=== PATIENT | male | born 1975 | race Two or more races ===

== ENCOUNTER 2018-03-30 11:08 | Inpatient (IN) | payer MEDICAID ==
[~2018-03-30] VITALS: Ht 175.3 cm; Wt 112.0 kg
[2018-03-30] VITALS (15 sets, daily range): BP systolic 167–202; BP diastolic 91–142
[2018-03-30] MEDS ORDERED: cloNIDine HCL 0.1 MG TAB ONE (11:25)
[2018-03-30] MEDS ORDERED: cloNIDine HCL 0.1 MG TAB PO ONE (11:30)
[2018-03-30 11:51] LABS: Basophils # (auto) 0 uL; Eosinophils # (auto) 0.1 uL; Monocytes # (auto) 0.6 uL
[2018-03-30 11:53] LABS: Basophils % (auto) 0.2 % (0.0-2.0); Eosinophils % (auto) 1.3 % (0.0-7.0); Hematocrit 19.6 % (41.0-53.0); Lymphocytes # (auto) 0.6 uL; Lymphocytes % (auto) 6.1 % (10.0-50.0); Mean Corpuscular Hemoglobin 30.4 pg (28.0-32.0); Mean Corpuscular Hgb Conc. 35.8 g/dL (32.0-36.0); Monocytes % (auto) 6.2 % (0.0-12.0); Neutrophils # (auto) 8.6 uL; Neutrophils % (auto) 86.2 % (37.0-80.0); Platelet Count (auto) 190 10^3/uL (140-450); Red Cell Distribution Width 15.7 % (11.8-14.3)
[2018-03-30 12:10] LABS: Partial Thromboplastin Time 30.8 sec (23.78-33.04); Prothrombin Time 10.7 sec (9.27-12.13)
[2018-03-30 12:36] LABS: Albumin 3.6 g/dL (3.4-5.0); Bilirubin, Total 0.4 mg/dL (0.2-1.0); Calcium 6.5 mg/dL (8.5-10.1); Magnesium 2.4 mg/dL (1.6-2.6); Total Protein 7.2 g/dL (6.4-8.2)
[2018-03-30 12:39] LABS: Potassium 2.8 mmol/L (3.5-5.1)
[2018-03-30] MEDS ORDERED: cefTRIAXone 1GM/10ml IVPUSH 10 ML IV ONE ×2 (13:30→15:00)
[2018-03-30] MEDS ORDERED: ONDANSETRON HCL 4 MG/2 ML VIAL IV ONE (13:30)
[2018-03-30] MEDS ORDERED: hydrALAZINE HCL 20 MG/ML VL IV ONE (13:30)
[2018-03-30] MEDS ORDERED: NITROGLYCERIN 50MG/250ML 250 ML IV SCH (14:55)
[2018-03-30] MEDS ORDERED: DEXTROSE (50%) 50ML SYRG IV PRN (15:00)
[2018-03-30] MEDS ORDERED: NITROGLYCERIN 0.4 MG SL TAB SL PRN (15:00)
[2018-03-30] MEDS ORDERED: ACETAMINOPHEN 500 MG TAB PO PRN (15:00)
[2018-03-30] MEDS ORDERED: MORPHINE SULF INJ 2 MG/ML SYRINGE 1ML IV PRN (15:00)
[2018-03-30] MEDS ORDERED: LACTULOSE 20Gm/30ML SOLN PO PRN (15:00)
[2018-03-30] MEDS: AZITHROMYCIN 500MG/ 250ML 250 ML IV SCH (15:19)
[2018-03-30] MEDS ORDERED: POTASSIUM EFFERVESENT TAB 25 MEQ PO ONE (15:30)
[2018-03-30] MEDS ORDERED: FUROSEMIDE 20 MG TAB PO ONE (15:45)
[2018-03-30 16:03] LABS: Urine Amorphous Crystal FEW /hpf (None Seen); Urine Bacteria FEW /hpf (None Seen); Urine Blood 2+ /uL (Negative); Urine Specific Gravity 1.007 (1.001-1.035); Urine WBC 2 /hpf (0 - 3)
[2018-03-30] MEDS ORDERED: SODIUM CHL 0.9% 1000 ML BAG XX ONE (16:15)
[2018-03-30] MEDS ORDERED: EPOETIN ALFA 10,000 UNIT/1 ML VIAL IV ONE (16:15)
[2018-03-30 16:20] LABS: Alcohol, Urine < 3.0 mg/dL (0-5); Amphetamine Screen, Urine NEGATIVE (NEGATIVE); Barbiturate Scree,Urine NEGATIVE (NEGATIVE); Benzodiazephine Screen, Urine NEGATIVE (NEGATIVE); Cannabinoid Screen, Urine NEGATIVE (NEGATIVE); Cocaine Screen, Urine NEGATIVE (NEGATIVE); Opiate Scree,Urine NEGATIVE (NEGATIVE); Phencyclidine Screen, Urine NEGATIVE (NEGATIVE)
[2018-03-30 16:32] LABS: Protein, Urine 144.6 mg/dL (0.0-11.9)
[2018-03-30 16:38] LABS: CRP High Sensitivity 1.63 mg/dL (< 0.3)
[2018-03-30] MEDS ORDERED: HEPARIN SODIUM (PORCINE) 5000 UNITS/ML 1ML VIAL ONE (16:41)
[2018-03-30] MEDS ORDERED: LIDOCAINE 2% (LOCAL ANESTH.) PF 5ml SDV ONE (16:57)
[2018-03-30] MEDS: InsuLIN REG 1unit/0.01ml Soln (100units/ml) SC SCH (18:00)
[2018-03-30 18:19] LABS: Hematocrit 20.6 % (41.0-53.0); Hemoglobin 7.4 g/dL (13.5-17.5)
[2018-03-30] MEDS: ALBUTEROL SULF 2.5 MG/0.5ML(0.5%) NEB SOLN NEB SCH (18:25)
[2018-03-30] MEDS: ACCU-CHEK COMFORT CURVE STRIP VI SCH (18:40)
[2018-03-30] MEDS: PROMETHAZINE HCL 25 MG/ML 1ML IV PRN (20:35)
[2018-03-30] MEDS: MORPHINE SULF INJ 2 MG/ML SYRINGE 1ML IV PRN (20:35)
[2018-03-30] MEDS: SODIUM CHLOR 0.9% PF (SALINE LOCK) 10ML VIAL/SYR IV SCH (20:35)
[2018-03-30] MEDS: PANTOPRAZOLE 40 MG TAB PO SCH (22:00)
[2018-03-30] MEDS: CARVEDILOL 3.125 MG TAB PO SCH (22:00)
[2018-03-31] VITALS (83 sets, daily range): BP systolic 125–196; BP diastolic 68–129
[2018-03-31] MEDS: ALBUTEROL SULF 2.5 MG/0.5ML(0.5%) NEB SOLN NEB SCH ×4 (00:12→18:38)
[2018-03-31 01:10] LABS: Hematocrit 21.3 % (41.0-53.0); Hemoglobin 7.7 g/dL (13.5-17.5)
[2018-03-31] MEDS: TEMAZEPAM 15 MG CAP PO PRN (02:06)
[2018-03-31] MEDS: HYDROcodone-ACET 5/325MG TAB PO PRN (02:06)
[2018-03-31 03:57] LABS: Basophils # (auto) 0 uL; Eosinophils # (auto) 0 uL; Eosinophils % (auto) 0.2 % (0.0-7.0); Monocytes # (auto) 0.7 uL; Neutrophils # (auto) 8.8 uL; Platelet Count (auto) 175 10^3/uL (140-450)
[2018-03-31 03:59] LABS: Basophils % (auto) 0.1 % (0.0-2.0); Hematocrit 19.7 % (41.0-53.0); Lymphocytes # (auto) 0.3 uL; Lymphocytes % (auto) 2.8 % (10.0-50.0); Mean Corpuscular Hemoglobin 30.1 pg (28.0-32.0); Mean Corpuscular Hgb Conc. 35.6 g/dL (32.0-36.0); Mean Corpuscular Volume 84.6 fL (80.0-100.0); Monocytes % (auto) 7.5 % (0.0-12.0); Neutrophils % (auto) 89.4 % (37.0-80.0); Red Blood Cells 2.33 10^6/uL (4.5-5.90); Red Cell Distribution Width 14.9 % (11.8-14.3); White Blood Cell 9.9 10^3/uL (4.4-10.8)
[2018-03-31 04:28] LABS: BUN/Creatinine Ratio 7.7; Bilirubin, Total 0.5 mg/dL (0.2-1.0); Calcium 6.2 mg/dL (8.5-10.1); Phosphorus 7.2 mg/dL (2.5-4.90); Total Protein 6.2 g/dL (6.4-8.2)
[2018-03-31 04:35] LABS: Potassium 2.9 mmol/L (3.5-5.1)
[2018-03-31] MEDS: MORPHINE SULF INJ 2 MG/ML SYRINGE 1ML IV PRN ×5 (04:48→20:16)
[2018-03-31] MEDS ORDERED: hydrALAZINE HCL 20 MG/ML VL ONE (05:57)
[2018-03-31] MEDS: InsuLIN REG 1unit/0.01ml Soln (100units/ml) SC SCH ×4 (06:00→18:00)
[2018-03-31] MEDS: ACCU-CHEK COMFORT CURVE STRIP VI SCH ×4 (06:00→18:10)
[2018-03-31] MEDS: SODIUM CHLOR 0.9% PF (SALINE LOCK) 10ML VIAL/SYR IV SCH ×3 (06:00→21:44)
[2018-03-31] MEDS ORDERED: POTASSIUM EFFERVESENT TAB 25 MEQ PO ONE (06:15)
[2018-03-31] MEDS ORDERED: hydrALAZINE HCL 20 MG/ML VL IV ONE (06:15)
[2018-03-31] MEDS ORDERED: SODIUM CHL 0.9% 1000 ML BAG XX ONE (07:45)
[2018-03-31] MEDS ORDERED: EPOETIN ALFA 10,000 UNIT/1 ML VIAL IV ONE (07:45)
[2018-03-31] MEDS ORDERED: POTASSIUM CHL 20 Meq TABLET PO ONE ×3 (08:30→21:00)
[2018-03-31] MEDS ORDERED: NIFEdipine ER 30 MG TAB PO ONE ×4 (09:15→10:45)
[2018-03-31] MEDS: cefTRIAXone 1GM/10ml IVPUSH 10 ML IV SCH (09:30)
[2018-03-31] MEDS ORDERED: ASPirin 81 mg TAB PO ONE (10:00)
[2018-03-31] MEDS: ENOXAPARIN SOD 30 MG/0.3 ML SYRINGE SC SCH (10:00)
[2018-03-31] MEDS: FUROSEMIDE 40 MG/4 ML VIAL IV SCH (10:05)
[2018-03-31] MEDS: CARVEDILOL 3.125 MG TAB PO SCH ×2 (10:05→21:44)
[2018-03-31] MEDS: PANTOPRAZOLE 40 MG TAB PO SCH ×2 (10:05→21:43)
[2018-03-31] MEDS: ASPirin 81 mg TAB PO SCH (10:06)
[2018-03-31] MEDS: AZITHROMYCIN 500MG/ 250ML 250 ML IV SCH (10:06)
[2018-03-31] MEDS: NICARDIPINE 25MG/250ML BAG KIT 250 ML IV SCH ×3 (11:20→20:45)
[2018-03-31 12:55] LABS: Hepatitis A Ab IgM Negative; Hepatitis B Core IgM Negative; Hepatitis B Surface Antigen Negative (Negative)
[2018-03-31 12:56] LABS: Hepatitis C Antibody Negative (Negative)
[2018-03-31 16:20] LABS: Basophils # (auto) 0 uL; Basophils % (auto) 0.1 % (0.0-2.0); Eosinophils # (auto) 0.1 uL; Eosinophils % (auto) 0.4 % (0.0-7.0); Hematocrit 26.1 % (41.0-53.0); Hemoglobin 9.4 g/dL (13.5-17.5); Lymphocytes # (auto) 0.6 uL; Mean Corpuscular Hemoglobin 30.5 pg (28.0-32.0); Mean Corpuscular Volume 84.7 fL (80.0-100.0); Monocytes # (auto) 1.4 uL; Monocytes % (auto) 8.6 % (0.0-12.0); Neutrophils # (auto) 13.7 uL; Neutrophils % (auto) 86.9 % (37.0-80.0); Platelet Count (auto) 183 10^3/uL (140-450); Red Blood Cells 3.08 10^6/uL (4.5-5.90); Red Cell Distribution Width 15.3 % (11.8-14.3); White Blood Cell 15.8 10^3/uL (4.4-10.8)
[2018-03-31 16:32] LABS: BUN/Creatinine Ratio 7.1; Calcium 7.1 mg/dL (8.5-10.1); Potassium 3.1 mmol/L (3.5-5.1)
[2018-03-31] MEDS: SEVELAMER 800 MG TAB PO SCH (18:02)
[2018-03-31] MEDS ORDERED: HCTZ25T PO (19:24)
[2018-03-31] MEDS ORDERED: ATEN100T PO (19:24)
[2018-03-31 22:11] LABS: BUN/Creatinine Ratio 5.6; Calcium 6.9 mg/dL (8.5-10.1); Potassium 3.2 mmol/L (3.5-5.1)
[2018-04-01] VITALS (58 sets, daily range): BP systolic 111–156; BP diastolic 70–104
[2018-04-01] MEDS: ACCU-CHEK COMFORT CURVE STRIP VI SCH ×4 (00:17→17:40)
[2018-04-01] MEDS: HYDROcodone-ACET 5/325MG TAB PO PRN ×3 (00:22→16:35)
[2018-04-01] MEDS: ALBUTEROL SULF 2.5 MG/0.5ML(0.5%) NEB SOLN NEB SCH ×4 (00:28→19:02)
[2018-04-01] MEDS: NICARDIPINE 25MG/250ML BAG KIT 250 ML IV SCH ×4 (01:45→14:01)
[2018-04-01 04:40] LABS: BUN/Creatinine Ratio 5.9; Calcium 7.2 mg/dL (8.5-10.1); Potassium 3.8 mmol/L (3.5-5.1)
[2018-04-01] MEDS: PROMETHAZINE HCL 25 MG/ML 1ML IV PRN (05:10)
[2018-04-01] MEDS: InsuLIN REG 1unit/0.01ml Soln (100units/ml) SC SCH ×4 (06:00→17:40)
[2018-04-01] MEDS: SODIUM CHLOR 0.9% PF (SALINE LOCK) 10ML VIAL/SYR IV SCH ×3 (06:19→21:52)
[2018-04-01] MEDS ORDERED: SODIUM CHL 0.9% 1000 ML BAG XX ONE (07:45)
[2018-04-01] MEDS ORDERED: EPOETIN ALFA 10,000 UNIT/1 ML VIAL IV ONE (07:45)
[2018-04-01 07:50] LABS: Basophils # (auto) 0 uL; Eosinophils # (auto) 0.1 uL; Eosinophils % (auto) 0.7 % (0.0-7.0)
[2018-04-01 07:52] LABS: Basophils % (auto) 0.1 % (0.0-2.0); Hematocrit 24.4 % (41.0-53.0); Hemoglobin 8.3 g/dL (13.5-17.5); Lymphocytes # (auto) 0.6 uL; Lymphocytes % (auto) 3.8 % (10.0-50.0); Mean Corpuscular Hemoglobin 29.7 pg (28.0-32.0); Mean Corpuscular Hgb Conc. 34.1 g/dL (32.0-36.0); Mean Corpuscular Volume 87.2 fL (80.0-100.0); Monocytes # (auto) 1.3 uL; Monocytes % (auto) 8.7 % (0.0-12.0); Neutrophils % (auto) 86.7 % (37.0-80.0); Platelet Count (auto) 177 10^3/uL (140-450); Red Cell Distribution Width 15.4 % (11.8-14.3)
[2018-04-01] MEDS: cefTRIAXone 1GM/10ml IVPUSH 10 ML IV SCH (09:33)
[2018-04-01] MEDS: AZITHROMYCIN 500MG/ 250ML 250 ML IV SCH (09:34)
[2018-04-01] MEDS: ENOXAPARIN SOD 30 MG/0.3 ML SYRINGE SC SCH (09:34)
[2018-04-01] MEDS: FUROSEMIDE 40 MG/4 ML VIAL IV SCH (09:34)
[2018-04-01] MEDS: ASPirin 81 mg TAB PO SCH (09:35)
[2018-04-01] MEDS: SEVELAMER 800 MG TAB PO SCH ×3 (09:35→18:18)
[2018-04-01] MEDS: PANTOPRAZOLE 40 MG TAB PO SCH ×2 (09:35→21:57)
[2018-04-01] MEDS: NIFEdipine ER 30 MG TAB PO SCH (09:35)
[2018-04-01] MEDS: CARVEDILOL 3.125 MG TAB PO SCH ×2 (09:36→21:57)
[2018-04-01] MEDS: DOCUSATE SOD 100 MG CAP PO SCH ×2 (15:44→21:57)
[2018-04-02] VITALS (42 sets, daily range): BP systolic 97–188; BP diastolic 51–121
[2018-04-02] MEDS: ALBUTEROL SULF 2.5 MG/0.5ML(0.5%) NEB SOLN NEB SCH ×4 (00:02→18:23)
[2018-04-02 03:54] LABS: Basophils # (auto) 0.1 uL; Basophils % (auto) 0.5 % (0.0-2.0); Eosinophils # (auto) 0.4 uL; Eosinophils % (auto) 2.6 % (0.0-7.0); Hematocrit 26.3 % (41.0-53.0); Hemoglobin 8.8 g/dL (13.5-17.5); Lymphocytes # (auto) 0.9 uL; Lymphocytes % (auto) 6.2 % (10.0-50.0); Mean Corpuscular Hemoglobin 29.6 pg (28.0-32.0); Mean Corpuscular Hgb Conc. 33.6 g/dL (32.0-36.0); Mean Corpuscular Volume 88.1 fL (80.0-100.0); Monocytes # (auto) 1.3 uL; Monocytes % (auto) 9.4 % (0.0-12.0); Neutrophils # (auto) 11.4 uL; Neutrophils % (auto) 81.3 % (37.0-80.0); Platelet Count (auto) 183 10^3/uL (140-450); Red Blood Cells 2.98 10^6/uL (4.5-5.90); Red Cell Distribution Width 15.1 % (11.8-14.3)
[2018-04-02 04:11] LABS: Potassium 3.7 mmol/L (3.5-5.1)
[2018-04-02 04:26] LABS: Albumin 2.8 g/dL (3.4-5.0); Bilirubin, Total 0.4 mg/dL (0.2-1.0); Total Protein 6.3 g/dL (6.4-8.2)
[2018-04-02] MEDS: InsuLIN REG 1unit/0.01ml Soln (100units/ml) SC SCH ×4 (05:28→18:00)
[2018-04-02] MEDS: SODIUM CHLOR 0.9% PF (SALINE LOCK) 10ML VIAL/SYR IV SCH ×3 (05:28→20:56)
[2018-04-02] MEDS: ACCU-CHEK COMFORT CURVE STRIP VI SCH ×4 (05:28→18:10)
[2018-04-02] MEDS: SEVELAMER 800 MG TAB PO SCH ×3 (08:33→18:54)
[2018-04-02] MEDS: NIFEdipine ER 30 MG TAB PO SCH (08:34)
[2018-04-02] MEDS ORDERED: ERGOCALCIFEROL 50,000 UNIT(1.25MG) CAP PO SCH (10:00)
[2018-04-02] MEDS ORDERED: CALCITRIOL 0.25 MCG CAP PO SCH (10:00)
[2018-04-02] MEDS: AZITHROMYCIN 500MG/ 250ML 250 ML IV SCH (10:28)
[2018-04-02] MEDS: cefTRIAXone 1GM/10ml IVPUSH 10 ML IV SCH (10:29)
[2018-04-02] MEDS: DOCUSATE SOD 100 MG CAP PO SCH ×2 (10:30→20:55)
[2018-04-02] MEDS: ASPirin 81 mg TAB PO SCH (10:30)
[2018-04-02] MEDS: FUROSEMIDE 40 MG/4 ML VIAL IV SCH (10:30)
[2018-04-02] MEDS: CARVEDILOL 3.125 MG TAB PO SCH (10:31)
[2018-04-02] MEDS: PANTOPRAZOLE 40 MG TAB PO SCH ×2 (10:31→20:55)
[2018-04-02] MEDS: ENOXAPARIN SOD 30 MG/0.3 ML SYRINGE SC SCH (10:32)
[2018-04-02] MEDS: HYDROcodone-ACET 5/325MG TAB PO PRN ×2 (10:53→20:20)
[2018-04-02] MEDS: CALCITRIOL 0.25 MCG CAP PO SCH (12:50)
[2018-04-02] MEDS: ATENOLOL 50 MG TAB PO SCH ×2 (13:58→20:55)
[2018-04-02] MEDS: PROMETHAZINE HCL 25 MG/ML 1ML IV PRN (20:55)
[2018-04-02] MEDS ORDERED: ATENOLOL 50 MG TAB PO SCH (22:00)
[2018-04-02] MEDS: TEMAZEPAM 15 MG CAP PO PRN (23:04)
[2018-04-03] VITALS (10 sets, daily range): BP systolic 120–162; BP diastolic 79–98
[2018-04-03] MEDS: ACCU-CHEK COMFORT CURVE STRIP VI SCH ×4 (00:03→18:11)
[2018-04-03] MEDS: ALBUTEROL SULF 2.5 MG/0.5ML(0.5%) NEB SOLN NEB SCH ×2 (00:13→06:58)
[2018-04-03] MEDS: PROMETHAZINE HCL 25 MG/ML 1ML IV PRN (03:32)
[2018-04-03] MEDS: HYDROcodone-ACET 5/325MG TAB PO PRN ×3 (03:32→18:32)
[2018-04-03 03:47] LABS: Basophils # (auto) 0.1 uL; Basophils % (auto) 0.5 % (0.0-2.0); Eosinophils # (auto) 0.5 uL; Eosinophils % (auto) 3.6 % (0.0-7.0); Hematocrit 27.4 % (41.0-53.0); Hemoglobin 9.1 g/dL (13.5-17.5); Lymphocytes # (auto) 1.3 uL; Mean Corpuscular Hemoglobin 29.3 pg (28.0-32.0); Mean Corpuscular Hgb Conc. 33.4 g/dL (32.0-36.0); Mean Corpuscular Volume 87.6 fL (80.0-100.0); Monocytes # (auto) 1.5 uL; Monocytes % (auto) 10.4 % (0.0-12.0); Neutrophils # (auto) 10.8 uL; Neutrophils % (auto) 76.5 % (37.0-80.0); Platelet Count (auto) 235 10^3/uL (140-450); Red Blood Cells 3.12 10^6/uL (4.5-5.90); Red Cell Distribution Width 15.4 % (11.8-14.3); White Blood Cell 14.2 10^3/uL (4.4-10.8)
[2018-04-03 04:11] LABS: Albumin 2.7 g/dL (3.4-5.0); Bilirubin, Total 0.4 mg/dL (0.2-1.0); Calcium 8.2 mg/dL (8.5-10.1); Phosphorus 5.8 mg/dL (2.5-4.90); Potassium 3.3 mmol/L (3.5-5.1); Total Protein 6.3 g/dL (6.4-8.2)
[2018-04-03] MEDS: InsuLIN REG 1unit/0.01ml Soln (100units/ml) SC SCH ×4 (06:00→18:00)
[2018-04-03] MEDS: SODIUM CHLOR 0.9% PF (SALINE LOCK) 10ML VIAL/SYR IV SCH ×3 (07:35→22:31)
[2018-04-03] MEDS: cefTRIAXone 1GM/10ml IVPUSH 10 ML IV SCH (09:10)
[2018-04-03] MEDS: SEVELAMER 800 MG TAB PO SCH ×3 (09:11→18:10)
[2018-04-03] MEDS: ATENOLOL 50 MG TAB PO SCH ×2 (10:04→22:34)
[2018-04-03] MEDS: NIFEdipine ER 30 MG TAB PO SCH (10:05)
[2018-04-03] MEDS: PANTOPRAZOLE 40 MG TAB PO SCH ×2 (10:05→22:34)
[2018-04-03] MEDS: ASPirin 81 mg TAB PO SCH (10:05)
[2018-04-03] MEDS: DOCUSATE SOD 100 MG CAP PO SCH ×2 (10:05→22:00)
[2018-04-03] MEDS: FUROSEMIDE 40 MG/4 ML VIAL IV SCH (10:05)
[2018-04-03] MEDS: ENOXAPARIN SOD 30 MG/0.3 ML SYRINGE SC SCH (10:06)
[2018-04-03] MEDS: CALCITRIOL 0.25 MCG CAP PO SCH (10:06)
[2018-04-03] MEDS: AZITHROMYCIN 500MG/ 250ML 250 ML IV SCH (10:08)
[2018-04-03] MEDS: TEMAZEPAM 15 MG CAP PO PRN (22:36)
[2018-04-03] MEDS: LORazepam 0.5 MG TAB PO PRN (23:58)
[2018-04-04] MEDS: ACCU-CHEK COMFORT CURVE STRIP VI SCH ×4 (00:01→18:18)
[2018-04-04 04:49] VITALS: BP 117/83
[2018-04-04] MEDS: InsuLIN REG 1unit/0.01ml Soln (100units/ml) SC SCH ×4 (06:00→18:00)
[2018-04-04] MEDS: MORPHINE SULF INJ 2 MG/ML SYRINGE 1ML IV PRN ×4 (06:00→19:54)
[2018-04-04] MEDS: SODIUM CHLOR 0.9% PF (SALINE LOCK) 10ML VIAL/SYR IV SCH ×3 (06:06→21:24)
[2018-04-04] MEDS: SEVELAMER 800 MG TAB PO SCH ×3 (08:44→18:18)
[2018-04-04] MEDS: PANTOPRAZOLE 40 MG TAB PO SCH ×2 (08:53→21:18)
[2018-04-04] MEDS: ASPirin 81 mg TAB PO SCH (08:53)
[2018-04-04] MEDS: ENOXAPARIN SOD 30 MG/0.3 ML SYRINGE SC SCH (08:53)
[2018-04-04] MEDS: CALCITRIOL 0.25 MCG CAP PO SCH (08:54)
[2018-04-04] MEDS: NIFEdipine ER 30 MG TAB PO SCH (08:54)
[2018-04-04] MEDS: DOCUSATE SOD 100 MG CAP PO SCH ×2 (08:55→21:18)
[2018-04-04] MEDS: LORazepam 0.5 MG TAB PO PRN ×2 (09:00→21:45)
[2018-04-04 09:24] VITALS: BP 125/88
[2018-04-04] MEDS ORDERED: EPOETIN ALFA 10,000 UNIT/1 ML VIAL IV ONE (10:45)
[2018-04-04] MEDS ORDERED: SODIUM CHL 0.9% 1000 ML BAG XX ONE (10:45)
[2018-04-04] MEDS ORDERED: POTASSIUM CHL 20 Meq TABLET PO ONE (11:00)
[2018-04-04 13:00] VITALS: BP 125/91
[2018-04-04] MEDS: ALBUTEROL SULF 2.5 MG/0.5ML(0.5%) NEB SOLN NEB PRN (14:49)
[2018-04-04 17:00] VITALS: BP 134/84
[2018-04-04] MEDS: HYDROcodone-ACET 5/325MG TAB PO PRN (21:15)
[2018-04-04] MEDS: ATENOLOL 50 MG TAB PO SCH ×2 (21:15→21:17)
[2018-04-04 22:00] VITALS: BP 148/103
[2018-04-05] VITALS (8 sets, daily range): BP systolic 124–179; BP diastolic 78–125
[2018-04-05] MEDS: MORPHINE SULF INJ 2 MG/ML SYRINGE 1ML IV PRN ×3 (03:31→22:07)
[2018-04-05] MEDS: InsuLIN REG 1unit/0.01ml Soln (100units/ml) SC SCH ×5 (05:09→23:34)
[2018-04-05] MEDS: ACCU-CHEK COMFORT CURVE STRIP VI SCH ×5 (05:09→23:34)
[2018-04-05] MEDS: SODIUM CHLOR 0.9% PF (SALINE LOCK) 10ML VIAL/SYR IV SCH ×3 (05:10→21:13)
[2018-04-05] MEDS: LORazepam 0.5 MG TAB PO PRN ×3 (05:16→19:41)
[2018-04-05] MEDS: ALBUTEROL SULF 2.5 MG/0.5ML(0.5%) NEB SOLN NEB PRN (07:22)
[2018-04-05] MEDS: SEVELAMER 800 MG TAB PO SCH ×3 (08:00→18:00)
[2018-04-05] MEDS: HYDROcodone-ACET 5/325MG TAB PO PRN ×3 (08:15→19:44)
[2018-04-05] MEDS ORDERED: IODIXANOL 320MG/ML 100ML BTL IV ONE (09:38)
[2018-04-05] MEDS ORDERED: LIDOCAINE 2%HCL (LOCAL ANESTH.) INJ 10ml MDV ONE ×3 (09:38→10:09)
[2018-04-05] MEDS ORDERED: fentaNYL CITRATE 100 MCG/2 ML VL ONE (09:39)
[2018-04-05] MEDS ORDERED: MIDAZOLAM HCL 1MG/1ML-2 ML VIAL ONE (09:39)
[2018-04-05] MEDS: ENOXAPARIN SOD 30 MG/0.3 ML SYRINGE SC SCH (10:00)
[2018-04-05] MEDS: CALCITRIOL 0.25 MCG CAP PO SCH (10:00)
[2018-04-05] MEDS: ASPirin 81 mg TAB PO SCH (10:00)
[2018-04-05] MEDS: PANTOPRAZOLE 40 MG TAB PO SCH ×2 (10:00→21:10)
[2018-04-05] MEDS: DOCUSATE SOD 100 MG CAP PO SCH ×2 (10:00→21:10)
[2018-04-05] MEDS ORDERED: ceFAZolin 1GM/50ML 50 ML IV ONE (10:05)
[2018-04-05] MEDS ORDERED: HEPARIN SODIUM (PORCINE) 5000 UNITS/ML 1ML VIAL ONE (10:07)
[2018-04-05 13:40] LABS: BUN/Creatinine Ratio 4.9; Calcium 7.8 mg/dL (8.5-10.1); Potassium 3.6 mmol/L (3.5-5.1)
[2018-04-05] MEDS ORDERED: NIFEdipine ER 30 MG TAB PO SCH (18:00)
[2018-04-05] MEDS ORDERED: cloNIDine HCL 0.1 MG TAB PO PRN (18:30)
[2018-04-05] MEDS: ATENOLOL 50 MG TAB PO SCH (21:11)
[2018-04-06] MEDS: MORPHINE SULF INJ 2 MG/ML SYRINGE 1ML IV PRN (03:42)
[2018-04-06] MEDS: ACCU-CHEK COMFORT CURVE STRIP VI SCH ×2 (05:08→12:00)
[2018-04-06] MEDS: InsuLIN REG 1unit/0.01ml Soln (100units/ml) SC SCH ×2 (05:08→12:00)
[2018-04-06] MEDS: SODIUM CHLOR 0.9% PF (SALINE LOCK) 10ML VIAL/SYR IV SCH ×2 (05:09→14:00)
[2018-04-06 05:56] VITALS: BP 132/92
[2018-04-06 06:18] LABS: Basophils # (auto) 0.1 uL; Basophils % (auto) 0.5 % (0.0-2.0); Eosinophils # (auto) 0.6 uL; Eosinophils % (auto) 4.6 % (0.0-7.0); Hematocrit 26.9 % (41.0-53.0); Hemoglobin 8.8 g/dL (13.5-17.5); Lymphocytes # (auto) 0.6 uL; Lymphocytes % (auto) 5.2 % (10.0-50.0); Mean Corpuscular Hemoglobin 29.3 pg (28.0-32.0); Mean Corpuscular Hgb Conc. 32.7 g/dL (32.0-36.0); Mean Corpuscular Volume 89.6 fL (80.0-100.0); Monocytes # (auto) 1.4 uL; Monocytes % (auto) 11.5 % (0.0-12.0); Neutrophils # (auto) 9.5 uL; Neutrophils % (auto) 78.2 % (37.0-80.0); Platelet Count (auto) 273 10^3/uL (140-450); Red Cell Distribution Width 15.2 % (11.8-14.3); White Blood Cell 12.1 10^3/uL (4.4-10.8)
[2018-04-06 06:39] LABS: Calcium 7.9 mg/dL (8.5-10.1)
[2018-04-06 09:00] VITALS: BP 153/103
[2018-04-06] MEDS ORDERED: EPOETIN ALFA 10,000 UNIT/1 ML VIAL IV ONE (09:30)
[2018-04-06] MEDS ORDERED: SODIUM CHL 0.9% 1000 ML BAG XX ONE (09:30)
[2018-04-06] MEDS ORDERED: ENOXAPARIN SOD 30 MG/0.3 ML SYRINGE SC SCH (10:00)
[2018-04-06] MEDS: PANTOPRAZOLE 40 MG TAB PO SCH (10:54)
[2018-04-06] MEDS: CALCITRIOL 0.25 MCG CAP PO SCH (10:54)
[2018-04-06] MEDS: ASPirin 81 mg TAB PO SCH (10:55)
[2018-04-06] MEDS: DOCUSATE SOD 100 MG CAP PO SCH (10:55)
[2018-04-06] MEDS: SEVELAMER 800 MG TAB PO SCH ×2 (11:18→11:24)
[2018-04-06 13:00] VITALS: BP 118/94
[2018-04-06] MEDS: HYDROcodone-ACET 5/325MG TAB PO PRN (14:59)
[2018-04-06 17:00] VITALS: BP 149/104
== END 2018-04-06 17:30 | disposition home or self-care (01) | DRG 720 ==
LOC: ER 11:08 → OVERFLOW 15:37 → ICU WEST 22:12 → TELE-WESTW 04-03 11:54
PROVIDERS: ADMIT Internal Medicine; ATTEND Internal Medicine Pulmonary Disease
PROC: 02HV33Z Insertion of Infusion Device into Superior Vena Cava, Percutaneous Approach (ICD-10-PCS; principal; 2018-03-30)
PROC: B5181ZA Fluoroscopy of Superior Vena Cava using Low Osmolar Contrast, Guidance (ICD-10-PCS; 2018-03-30)
PROC: B548ZZA Ultrasonography of Superior Vena Cava, Guidance (ICD-10-PCS; 2018-03-30)
PROC: 5A1D70Z Performance of Urinary Filtration, Intermittent, Less than 6 Hours Per Day (ICD-10-PCS; 2018-03-30)
PROC: 30233N1 Transfusion of Nonautologous Red Blood Cells into Peripheral Vein, Percutaneous Approach (ICD-10-PCS; 2018-03-30)
PROC: 5A1D70Z Performance of Urinary Filtration, Intermittent, Less than 6 Hours Per Day (ICD-10-PCS; 2018-03-31)
PROC: 5A1D70Z Performance of Urinary Filtration, Intermittent, Less than 6 Hours Per Day (ICD-10-PCS; 2018-04-01)
PROC: 5A1D70Z Performance of Urinary Filtration, Intermittent, Less than 6 Hours Per Day (ICD-10-PCS; 2018-04-04)
PROC: 5A1D70Z Performance of Urinary Filtration, Intermittent, Less than 6 Hours Per Day (ICD-10-PCS; 2018-04-06)
DX: A41.9 Sepsis, unspecified organism (principal); J96.00 Acute respiratory failure, unspecified whether with hypoxia or hypercapnia; N17.0 Acute kidney failure with tubular necrosis; I13.2 Hypertensive heart and chronic kidney disease with heart failure and with stage 5 chronic kidney disease, or end stage renal disease; J15.6 Pneumonia due to other Gram-negative bacteria; I50.9 Heart failure, unspecified; N18.6 End stage renal disease; E44.1 Mild protein-calorie malnutrition; E87.1 Hypo-osmolality and hyponatremia; I16.1 Hypertensive emergency; E87.6 Hypokalemia; R73.9 Hyperglycemia, unspecified; D63.1 Anemia in chronic kidney disease; E21.3 Hyperparathyroidism, unspecified; E55.9 Vitamin D deficiency, unspecified; E87.70 Fluid overload, unspecified; F41.9 Anxiety disorder, unspecified; Z74.01 Bed confinement status; Z79.899 Other long term (current) drug therapy; Z82.49 Family history of ischemic heart disease and other diseases of the circulatory system; Z91.19 Patient's noncompliance with other medical treatment and regimen; Z79.82 Long term (current) use of aspirin; Z68.36 Body mass index [BMI] 36.0-36.9, adult
CPT/HCPCS: 36415; 36430; 71045; 71046; 74176; 76000; 76775; 76937; 77002; 80048; 80053; 80061; 80074; 80307; 81001; 82088; 82150; 82270; 82306; 82378; 82550; 82570; 82962; 83036; 83605; 83690; 83735; 83880; 83970; 84100; 84156; 84244; 84443; 84484; 85014; 85018; 85025; 85045; 85610; 85652; 85730; 86038; 86141; 86160; 86850; 86900; 86901; 86920; 87040; 87070; 87077; 87081; 87186; 87205; 90935; 93005; 93306; 94640; 94761; 96374; 96375; 99152; 99291; A6257; J0690; J0696; J0885; J1642; J1815; J2001; J2250; J2405; Q9967

== ENCOUNTER 2022-02-21 16:04 | Emergency (ER) | payer MEDICARE, MEDICAID ==
[~2022-02-21] VITALS: Ht 172.7 cm; Wt 95.3 kg
[~2022-02-21 16:04] MED LIST: ATEN100T PO; CINA30TA2 PO; FURO80TA3 PO; HYDR25TA5 PO; LABE300T3 PO; NIFE1TAB31 PO; [UNRECOGNIZED DRUG - CODE] PO
[2022-02-21 16:36] VITALS: BP 136/84
[2022-02-21] MEDS ORDERED: cefTRIAXone SOD 1,000 MG VL IM ONE (16:45)
[2022-02-21] MEDS ORDERED: METH4PAK PO (16:49)
[2022-02-21] MEDS ORDERED: AZIT500T66 PO (16:49)
[2022-02-21] MEDS ORDERED: ACET-1080 PO (17:05)
== END 2022-02-21 17:11 | disposition home or self-care (01) ==
LOC: ER 16:04
DX: U07.1 COVID-19 (principal); J03.90 Acute tonsillitis, unspecified; I12.0 Hypertensive chronic kidney disease with stage 5 chronic kidney disease or end stage renal disease; N18.6 End stage renal disease; Z79.899 Other long term (current) drug therapy
CPT/HCPCS: 96372; 99283; J0696

== ENCOUNTER 2022-12-02 12:34 | Emergency (ER) | payer MEDICARE, MEDICAID ==
[~2022-12-02] VITALS: Ht 175.3 cm; Wt 95.4 kg
[~2022-12-02 12:34] MED LIST changes: +ACET-1080 PO; +AZIT500T66 PO
[2022-12-02 13:22] LABS: Basophils # (auto) 0.1 10 ^3/uL (0-0.2); Eosinophils # (auto) 0.2 10 ^3/uL (0-0.8); Lymphocytes # (auto) 1.4 10 ^3/uL (0.4-5.4); Lymphocytes % (auto) 19.1 % (10.0-50.0); Mean Corpuscular Hgb Conc. 33.6 g/dL (32.0-36.0); Mean Corpuscular Volume 100.7 fL (80.0-100.0); Monocytes # (auto) 0.7 10 ^3/uL (0-1.3); Neutrophils # (auto) 4.8 10 ^3/uL (1.6-8.6); White Blood Cell 7.2 10^3/uL (4.4-10.8)
[2022-12-02 13:23] LABS: Basophils % (auto) 0.8 % (0.0-2.0); Eosinophils % (auto) 3.3 % (0.0-7.0); Hematocrit 24.3 % (41.0-53.0); Hemoglobin 8.1 g/dL (13.5-17.5); Mean Corpuscular Hemoglobin 33.8 pg (28.0-32.0); Neutrophils % (auto) 66.8 % (37.0-80.0); Nucleated Red Blood Cells % 0.1 %; Red Blood Cells 2.41 10^6/uL (4.5-5.90); Red Cell Distribution Width 17.2 % (11.8-14.3)
[2022-12-02 14:00] LABS: Albumin 4.2 g/dL (3.4-5.0); Calcium 8.3 mg/dL (8.5-10.1); Potassium 4.5 mmol/L (3.5-5.1)
[2022-12-02 14:02] LABS: BUN/Creatinine Ratio 5.1 (10.0-20.0)
[2022-12-02 14:05] LABS: Bilirubin, Total 0.5 mg/dL (0.2-1.0); Total Protein 8.1 g/dL (6.4-8.2)
[2022-12-02 14:16] VITALS: BP 128/90
== END 2022-12-02 14:19 | disposition home or self-care (01) ==
LOC: ER 12:34
DX: D64.9 Anemia, unspecified (principal); I12.0 Hypertensive chronic kidney disease with stage 5 chronic kidney disease or end stage renal disease; N18.6 End stage renal disease; Z88.1 Allergy status to other antibiotic agents
CPT/HCPCS: 36415; 80053; 85025; 86850; 86900; 86901